=== PATIENT | female | born 1985 | race African-American/Black ===

== ENCOUNTER 2018-08-26 20:53 | Emergency (ER) | payer SELFPAY ==
[2018-08-26] MEDS ORDERED: NA CHLORIDE 0.9% 1,000 ML ONE (22:03)
[2018-08-26 22:52] LABS: Protime INR 1.08
[2018-08-26 22:54] LABS: Absolute Lymphocytes (CBC) 1.8 K/uL (0.7-4.9); Absolute Monocytes 0.7 K/uL (0.1-1.3); Absolute Neutrophil 4.1 K/uL (1.8-8.0); Eosinophils % 3.3 % (0-4.4); Lymphocytes % 25.7 % (15.3-44.8); Monocytes % 10.5 % (3.3-12.3); RBC Red Blood Cell Count 5.47 M/uL (3.86-4.86)
[2018-08-26 22:54] LABS: Urine Blood 3+ (NEG); Urine Glucose NEGATIVE (NEG); Urine Protein NEGATIVE (NEG); Urine Specific Gravity 1.005 (1.005-1.030); Urine pH 5.5 (5.0-7.0)
[2018-08-26 23:12] LABS: ALT/SGPT 34 U/L (12-78); AST/SGOT 31 U/L (15-37); Albumin 3.3 g/dL (3.4-5.0); Alkaline Phosphatase 103 U/L (45-117); BUN Blood Urea Nitrogen 6 mg/dL (7-18); Bicarbonate 24 mmol/L (21-32); Bilirubin Direct 0.2 mg/dL (0-0.2); Bilirubin Total 0.4 mg/dL (0.2-1.0); Glucose Level 93 mg/dL (74-106); Magnesium 2.1 mg/dL (1.8-2.4); Potassium 3.9 mmol/L (3.5-5.1); Sodium Level 140 mmol/L (136-145); Troponin (Emerg Dept Use Only) < 0.02 ng/mL (0.0-0.045)
[2018-08-26 23:36] LABS: Blood Morphology Comment NOTED (NOT SEEN); Hypochromasia 1+; Platelet Estimate ADEQ; Target Cells 1+; Urine White Blood Cell Casts OK
--- NOTE | 2018-08-26 23:41 | EDPHYS ---
Physician Documentation [facility] Name: Barbra Villa Age: 33 yrs Sex: Female : 1985 Arrival Date: 08/26/2018 Time: 20:54 Bed 19 Private MD: ED Physician Daniel Smith HPI: 08/26 21:31 This 33 yrs old Black Female presents to ER via Ambulatory with complaints of tingling cp head and feet, body heaviness, General Weakness. 21:31 The patient's problem is reported as paresthesias, in right lower extremity, in left cp lower extremity, head, headache, general weakness. Onset: The symptoms/episode began/occurred last night. Duration: The episode is continuous. Context: occurred while the patient was driving. Associated signs and symptoms: Pertinent positives: dizziness, lightheadedness, palpitations, shortness of breath, tingling, Pertinent negatives: abdominal pain, chest pain, confusion, diarrhea. Severity of symptoms: in the emergency department the symptoms are unchanged despite home interventions. 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 - Social history:: Smoking status: Patient uses tobacco products, smokes one-half pack cigarettes per day. - Ebola Screening: : No symptoms or risks identified at this time. ROS: 21:35 Constitutional: Negative for body aches, chills, fever, poor PO intake. cp 21:35 Eyes: Negative for injury, pain, redness, and discharge. cp 21:35 ENT: Negative for drainage from ear(s), ear pain, sore throat, difficulty swallowing, difficulty handling secretions. 21:35 Cardiovascular: Positive for palpitations, Negative for chest pain, edema, palpitations. 21:35 Respiratory: Negative for cough, shortness of breath, wheezing. 21:35 Abdomen/GI: Negative for abdominal pain, nausea, vomiting, and diarrhea. 21:35 Skin: Negative for rash. 21:35 Neuro: Positive for dizziness, headache, tingling, Negative for altered mental status, weakness. 21:35 All other systems are negative. Exam: 21:40 Constitutional: The patient appears in no acute distress, alert, awake, cp non-diaphoretic, non-toxic, well developed, well nourished. 21:40 Head/Face: Normocephalic, atraumatic. Eyes: Pupils equal round and reactive to light, cp extra-ocular motions intact. Lids and lashes normal. Conjunctiva and sclera are non-icteric and not injected. Cornea within normal limits. Periorbital areas with no swelling, redness, or edema. ENT: Nares patent. No nasal discharge, no septal abnormalities noted. Tympanic membranes are normal and external auditory canals are clear. Oropharynx with no redness, swelling, or masses, exudates, or evidence of obstruction, uvula midline. Mucous membranes moist. Neck: Trachea midline, no thyromegaly or masses palpated, and no cervical lymphadenopathy. Supple, full range of motion without nuchal rigidity, or vertebral point tenderness. No Meningismus. Chest/axilla: Normal chest wall appearance and motion. Nontender with no deformity. No lesions are appreciated. Cardiovascular: Regular rate and rhythm with a normal S1 and S2. No gallops, murmurs, or rubs. Normal PMI, no JVD. No pulse deficits. Respiratory: Lungs have equal breath sounds bilaterally, clear to auscultation and percussion. No rales, rhonchi or wheezes noted. No increased work of breathing, no retractions or nasal flaring. Abdomen/GI: Soft, non-tender, with normal bowel sounds. No distension or tympany. No guarding or rebound. No evidence of tenderness throughout. 21:40 Skin: no rash present. 21:40 Neuro: Orientation: to person, place \T\ time. Mentation: is normal, Cerebellar function: Romberg testing is negative, normal finger to nose testing, heel to krishna testing is normal, Motor: moves all fours, strength is normal, Sensation: tingling, that is mild, of the left lower leg and right lower leg, Gait: is steady. 21:54 ECG was reviewed by the Attending Physician. cp 22:00 Radiologist reports: no acute findings cp Vital Signs: 21:01 BP 163 / 97; Pulse 94; Resp 18; Temp 98.8(O); Pulse Ox 100% on R/A; Weight 72.57 kg; lp1 Height 5 ft. 2 in. (157.48 cm); Pain 0/10; 22:13 BP 143 / 93; Pulse 77; Resp 16 S; Pulse Ox 100% on R/A; jd3 22:46 BP 139 / 84 Supine; Pulse 78 LA; jb5 22:46 BP 139 / 94 Sitting; Pulse 79 LA; jb5 22:46 BP 150 / 104 Standing; Pulse 87 LA; jb5 23:04 BP 136 / 94; Pulse 77; Resp 14 S; Pulse Ox 100% on R/A; jd3 21:01 Body Mass Index 29.26 (72.57 kg, 157.48 cm) lp1 NIH Stroke Scale Scores: 21:25 NIHSS Score: 0 jd3 MDM: 21:22 Patient medically screened. cp 23:40 Data reviewed: vital signs, nurses notes, lab test result(s), EKG, radiologic studies, cp CT scan, and as a result, I will discharge patient. 23:40 Test interpretation: by ED physician or midlevel provider: ECG. Counseling: I had a cp detailed discussion with the patient and/or guardian regarding: the historical points, exam findings, and any diagnostic results supporting the discharge/admit diagnosis, lab results, radiology results, the need for outpatient follow up, a family practitioner, to return to the emergency department if symptoms worsen or persist or if there are any questions or concerns that arise at home. Response to treatment: the patient's symptoms have markedly improved after treatment, and as a result, I will discharge patient. 08/26 21:31 Order name: Basic Metabolic Panel cp 08/26 21:31 Order name: CBC with Diff cp 08/26 21:31 Order name: LFT's cp 08/26 21:31 Order name: Magnesium cp 08/26 21:31 Order name: PT-INR; Complete Time: 23:21 cp 08/26 21:31 Order name: Troponin (emerg Dept Use Only); Complete Time: 23:21 cp 08/26 21:31 Order name: CT Head Brain wo Cont cp 08/26 21:32 Order name: Basic Metabolic Panel; Complete Time: 23:21 EDMS 08/26 23:21 Interpretation: Normal except: BUN 6; GFR 82. cp 08/26 21:32 Order name: CBC with Automated Diff EDMS 08/26 23:22 Interpretation: Normal except: RBC 5.47; HGB 11.7; MCV 65.7; MCH 21.3; RDW 17.0. cp 08/26 21:32 Order name: Liver (Hepatic) Function; Complete Time: 23:21 EDMS 08/26 23:22 Interpretation: Normal except: ALB 3.3; GLOB 4.7; A/G 0.7. cp 08/26 21:32 Order name: Magnesium; Complete Time: 23:21 EDMS 08/26 23:22 Interpretation: Within normal limits: MG 2.1. cp 08/26 22:42 Order name: Urine Dipstick--Ancillary (enter results); Complete Time: 23:21 ag4 08/26 22:42 Order name: Urine --Ancillary (enter results); Complete Time: 23:21 ag4 08/26 23:37 Order name: CBC Smear Scan EDAK 08/26 21:24 Order name: Urine Dipstick-Ancillary (obtain specimen); Complete Time: 22:28 cp 08/26 21:24 Order name: Urine Test (obtain specimen); Complete Time: 22:28 cp 08/26 21:31 Order name: Orthostatics; Complete Time: 22:50 cp 08/26 21:31 Order name: EKG; Complete Time: 21:32 cp 08/26 21:31 Order name: Cardiac monitoring; Complete Time: 21:54 cp 08/26 21:31 Order name: EKG - Nurse/Tech; Complete Time: 21:54 cp 08/26 21:31 Order name: IV Saline Lock; Complete Time: 21:58 cp 08/26 21:31 Order name: Labs collected and sent; Complete Time: 21:58 cp 08/26 21:31 Order name: O2 Per Protocol; Complete Time: 21:36 cp 08/26 21:31 Order name: O2 Sat Monitoring; Complete Time: 21:36 cp EC:54 Rate is 85 beats/min. Rhythm is regular. CT interval is normal. QRS interval is normal. cp QT interval is normal. Reviewed by me. Administered Medications: 21:58 Drug: NS 0.9% 1000 ml Route: IV; Rate: 1 bolus; Site: right antecubital; jd3 23:49 Follow up: Response: No adverse reaction; IV Status: Completed infusion; IV Intake: jd3 1000ml Disposition: 08/27 02:44 Co-signature as Attending Physician, Daniel Smith MD. mj Disposition: 08/26/18 23:41 Discharged to Home. Impression: Paresthesia of skin - lower legs, Palpitations, Dizziness, Headache. - Condition is Stable. - Discharge Instructions: Dizziness, General Headache Without Cause, Palpitations, Paresthesia. - Medication Reconciliation Form, Thank You Letter, Antibiotic Education, Prescription Opioid Use, Work release form form. - Follow up: Private Physician; When: 2 - 3 days; Reason: Recheck today's complaints. - Problem is new. - Symptoms have improved. NIH Stroke Scale - NIH Stroke Score Date: 08/26/2018 Time: 21:25 Total Score = 0 1a. Level of Consciousness (LOC) - 0(Alert) 1b. Level of Consciousness (LOC) (Year \T\ Age) - 0(Both) 1c. LOC Commands (Open \T\ Closes Eyes/Wildlife Protector) - 0(Both) 2. Best Gaze (Lateral Gaze Paresis) - 0(Normal) 3. Visual Field Loss - 0(No visual loss) 4. Facial Palsy - 0(Normal) 5a. Left Arm: Motor (10-second hold) - 0(No drift) 5b. Right Arm: Motor (10-second hold) - 0(No drift) 6a. Left Leg: Motor (5-second hold - always test supine) - 0(No drift) 6b. Right Leg: Motor (5-second hold - always test supine) - 0(No drift) 7. Limb Ataxia (finger/nose \T\ heel/krishna - test with eyes open) - 0(Absent) 8. Sensory Loss (pinprick arms/legs/face) - 0(Normal) 9. Best Language: Aphasia (description/naming/reading) - 0(No aphasia) 10. Dysarthria (speech clarity - read or repeat words) - 0(Normal) 11. Extinction and Inattention (visual/tactile/auditory/spatial/personal) - 0(No abnormality) Initials: jd3 Signatures: Dispatcher [employer] EDMS Daniel Smith MD MD pkMariza Duran RN RN lp1 Gerry Traylor PA PA cp Davies, Jonathon, RN RN jd3 Corrections: (The following items were deleted from the chart) 08/26 23:41 23:41 08/26/2018 23:41 Discharged to Home. Impression: Paresthesia of skin - cp lower legs; Weakness - general. Condition is Stable. Forms are Medication Reconciliation Form, Thank You Letter, Antibiotic Education, Prescription Opioid Use. Follow up: Private Physician; When: 2 - 3 days; Reason: Recheck today's complaints. Problem is new. Symptoms have improved. cp 23:42 23:41 08/26/2018 23:41 Discharged to Home. Impression: Paresthesia of skin - cp lower legs. Condition is Stable. Forms are Medication Reconciliation Form, Thank You Letter, Antibiotic Education, Prescription Opioid Use. Follow up: Private Physician; When: 2 - 3 days; Reason: Recheck today's complaints. Problem is new. Symptoms have improved. cp 23:50 23:42 08/26/2018 23:41 Discharged to Home. Impression: Paresthesia of skin - jd3 lower legs; Palpitations; Dizziness; Headache. Condition is Stable. Discharge Instructions: Palpitations, Paresthesia. Forms are Medication Reconciliation Form, Thank You Letter, Antibiotic Education, Prescription Opioid Use. Follow up: Private Physician; When: 2 - 3 days; Reason: Recheck today's complaints. Problem is new. Symptoms have improved. cp
--- NOTE | 2018-08-26 23:41 | ER ---
Nurse's Notes [facility] Name: Barbra Villa Age: 33 yrs Sex: Female : 1985 Arrival Date: 08/26/2018 Time: 20:54 Bed 19 Private MD: Diagnosis: Paresthesia of skin-lower legs;Palpitations;Dizziness;Headache Presentation: 08/26 20:58 Presenting complaint: Patient states: "I think I'm having a mini-stroke. Last night my lp1 HR jumped from 98 to 135 on my watch in less than 15 min"; States tingling to hands and feet since 0100 this morning, dizziness, feels short of breath; States having to leave work today due to tingling in hands and feet. Transition of care: patient was not received from another setting of care. Onset of symptoms was August 26, 2018 at 01:00. Risk Assessment: Do you want to hurt yourself or someone else? Patient reports no desire to harm self or others. Care prior to arrival: None. 20:58 Method Of Arrival: Ambulatory lp1 20:58 Acuity: STANLEY 3 lp1 21:04 Initial Sepsis Screen: Does the patient meet any 2 criteria? No. Patient's initial lp1 sepsis screen is negative. Does the patient have a suspected source of infection? No. Patient's initial sepsis screen is negative. Triage Assessment: 21:03 General: Appears in no apparent distress. Behavior is calm, cooperative. General: lp1 Patient drinking soda during triage. Pain: Denies pain. Neuro: Level of Consciousness is awake, alert, obeys commands, Oriented to person, place, time, situation, Moves all extremities. Full function Gait is steady, Speech is normal, Reports tingling in hands and feet. 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 - Social history:: Smoking status: Patient uses tobacco products, smokes one-half pack cigarettes per day. - Ebola Screening: : No symptoms or risks identified at this time. Screenin:04 Abuse screen: Denies threats or abuse. Denies injuries from another. Nutritional lp1 screening: No deficits noted. Tuberculosis screening: No symptoms or risk factors identified. Fall Risk None identified. 21:25 VAN Screening: Arm Drift: Patient shows no arm weakness. Patient is VAN negative. jd3 Assessment: 21:23 General: Appears in no apparent distress. uncomfortable, Behavior is calm, cooperative, jd3 appropriate for age. Pain: Denies pain. Neuro: Level of Consciousness is awake, alert, obeys commands, Oriented to person, place, time, situation, Appropriate for age Child Care Associate Teacher are equal bilaterally Moves all extremities. Full function Gait is steady, Speech is normal, Facial symmetry appears normal, Pupils are PERRLA, Intact Tingling in head, right hand, left hand, right foot and left foot. Cardiovascular: Heart tones S1 S2 present Capillary refill < 3 seconds Patient's skin is warm and dry. Respiratory: Airway is patent Respiratory effort is even, unlabored, Respiratory pattern is regular, symmetrical, Breath sounds are clear bilaterally. GI: Abdomen is non-distended, Patient currently denies diarrhea, nausea, vomiting. : No signs and/or symptoms were reported regarding the genitourinary system. EENT: No signs and/or symptoms were reported regarding the EENT system. Derm: Skin is intact, Skin is dry, Skin is normal, Skin temperature is warm. Musculoskeletal: Circulation, motion, and sensation intact. Range of motion: intact in all extremities. 21:36 Reassessment: pt to CT with fingerprint technician. jd3 22:12 Reassessment: Patient appears in no apparent distress at this time. Patient and/or jd3 family updated on plan of care and expected duration. Pain level reassessed. Patient is alert, oriented x 3, equal unlabored respirations, skin warm/dry/pink. 23:05 Reassessment: Patient appears in no apparent distress at this time. Patient and/or jd3 family updated on plan of care and expected duration. Pain level reassessed. Patient is alert, oriented x 3, equal unlabored respirations, skin warm/dry/pink. awaiting results. 23:49 Reassessment: Patient appears in no apparent distress at this time. Patient and/or jd3 family updated on plan of care and expected duration. Pain level reassessed. Patient is alert, oriented x 3, equal unlabored respirations, skin warm/dry/pink. Vital Signs: 21:01 BP 163 / 97; Pulse 94; Resp 18; Temp 98.8(O); Pulse Ox 100% on R/A; Weight 72.57 kg; lp1 Height 5 ft. 2 in. (157.48 cm); Pain 0/10; 22:13 BP 143 / 93; Pulse 77; Resp 16 S; Pulse Ox 100% on R/A; jd3 22:46 BP 139 / 84 Supine; Pulse 78 LA; jb5 22:46 BP 139 / 94 Sitting; Pulse 79 LA; jb5 22:46 BP 150 / 104 Standing; Pulse 87 LA; jb5 23:04 BP 136 / 94; Pulse 77; Resp 14 S; Pulse Ox 100% on R/A; jd3 21:01 Body Mass Index 29.26 (72.57 kg, 157.48 cm) lp1 NIH Stroke Scale Scores: 21:25 NIHSS Score: 0 jd3 ED Course: 20:54 Patient arrived in ED. am2 21:01 Triage completed. lp1 21:01 Arm band placed on left wrist. lp1 21:17 Shabbir Huerta RN is Primary Nurse. jd3 21:21 Gerry Traylor PA is PHCP. cp 21:21 Daniel Smith MD is Attending Physician. cp 21:25 Patient has correct armband on for positive identification. Placed in gown. Bed in low jd3 position. Call light in reach. Side rails up X 1. 21:58 CT Head Brain wo Cont In Process Unspecified. EDMS 22:00 Inserted saline lock: 20 gauge in right antecubital area, using aseptic technique. jd3 Blood collected. placed by [employer] technical agronomist. 22:29 Inserted saline lock: 22 gauge in left antecubital area, using aseptic technique. Blood jd3 collected. placed by [employer] manager proposal. 23:49 No provider procedures requiring assistance completed. IV discontinued, intact, jd3 bleeding controlled, No redness/swelling at site. Pressure dressing applied. Administered Medications: 21:58 Drug: NS 0.9% 1000 ml Route: IV; Rate: 1 bolus; Site: right antecubital; jd3 23:49 Follow up: Response: No adverse reaction; IV Status: Completed infusion; IV Intake: jd3 1000ml Intake: 23:49 IV: 1000ml; Total: 1000ml. jd3 Outcome: 23:41 Discharge ordered by . cp 23:49 Discharged to home ambulatory, with family. jd3 23:49 Condition: stable 23:49 Discharge instructions given to patient, family, Instructed on discharge instructions, follow up and referral plans. Demonstrated understanding of instructions, follow-up care. 23:50 Patient left the ED. jd3 NIH Stroke Scale - NIH Stroke Score Date: 08/26/2018 Time: 21:25 Total Score = 0 1a. Level of Consciousness (LOC) - 0(Alert) 1b. Level of Consciousness (LOC) (Year \\T\\ Age) - 0(Both) 1c. LOC Commands (Open \\T\\ Closes Eyes/Superintendent Storage Area) - 0(Both) 2. Best Gaze (Lateral Gaze Paresis) - 0(Normal) 3. Visual Field Loss - 0(No visual loss) 4. Facial Palsy - 0(Normal) 5a. Left Arm: Motor (10-second hold) - 0(No drift) 5b. Right Arm: Motor (10-second hold) - 0(No drift) 6a. Left Leg: Motor (5-second hold - always test supine) - 0(No drift) 6b. Right Leg: Motor (5-second hold - always test supine) - 0(No drift) 7. Limb Ataxia (finger/nose \\T\\ heel/krishna - test with eyes open) - 0(Absent) 8. Sensory Loss (pinprick arms/legs/face) - 0(Normal) 9. Best Language: Aphasia (description/naming/reading) - 0(No aphasia) 10. Dysarthria (speech clarity - read or repeat words) - 0(Normal) 11. Extinction and Inattention (visual/tactile/auditory/spatial/personal) - 0(No abnormality) Initials: jd3 Signatures: Dispatcher [employer] EDMS Mariza Guerra RN RN lp1 Gerry Traylor PA PA cp Broussard, Jennifer jbSimran Nye am2 Shabbir Huerta RN RN jd3 Corrections: (The following items were deleted from the chart) 22:01 22:00 Inserted saline lock: 20 gauge in right antecubital area, using aseptic jd3 technique. Blood collected. jd3
--- NOTE | 2018-08-27 08:11 | EKG ---
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
--- NOTE | 2018-08-30 11:49 | RAD REPORT ---
EXAM DESCRIPTION: CT Head Without Intravenous Contrast CLINICAL HISTORY: The patient is 33 years old and is Female; tingling;Headache TECHNIQUE: Axial computed tomography images of the head/brain without intravenous contrast. Sagitt al and coronal reformatted images were created and reviewed. This CT exam was performed using one o r more of the following dose reduction techniques: automated exposure control, adjustment of the mA and/or kV according to patient size, and/or use of iterative reconstruction technique. COMPARISON: No relevant prior studies available. FINDINGS: BRAIN: Unremarkable. The fernandez-white matter differentiation is preserved . No hemorrhag e. No significant white matter disease. No edema. No extra-axial fluid collections. VENTRICLES: Unremarkable. No ventriculomegaly. BONES/JOINTS: No acute fracture. SOFT TISSUES: Unremarkable. SINUSES: Unremarkable as visualized. No acute sinusitis. MASTOID AIR CELLS: Unremarkable as visualized. No mastoid effusion. IMPRESSION: No acute intracranial findings. Electronically signed by: Chanel Olson MD 08/26/2018 10:05 PM CDT Due to temporary technical issues with the PACS/Fluency reporting system, reports are being signed by the in house radiologist as a courtesy to ensure prompt reporting. The interpreting radiologist is f ully responsible for the content of the report.
== END 2018-08-26 23:50 | disposition home or self-care (01) ==
LOC: ER 20:53
DX: R00.2 Palpitations (principal); R51 Headache; R42 Dizziness and giddiness; F17.210 Nicotine dependence, cigarettes, uncomplicated
CPT/HCPCS: 36415; 70450; 80048; 80076; 81003; 81025; 83735; 84484; 85025; 85610; 93005; 96360; 96361; 99284; J7030

== ENCOUNTER 2019-01-01 08:27 | Emergency (ER) | payer SELFPAY ==
--- NOTE | 2019-01-01 08:49 | ER ---
Nurse's Notes [facility] Name: Barbra Dubon Age: 33 yrs Sex: Female : 1985 Arrival Date: 01/01/2019 Time: 08:33 Bed 14 Private MD: Diagnosis: Allergy status to analgesic agent status Presentation: 01/01 08:38 Presenting complaint: Patient states: L upper lip swelling that began last night. ss Patient reports she took a dose of Benadryl last night which seem to help a little, but it's still swollen this morning. Denies difficulty breathing/ pain. Transition of care: patient was not received from another setting of care. Onset of symptoms was December 31, 2018. Risk Assessment: Do you want to hurt yourself or someone else? Patient reports no desire to harm self or others. Initial Sepsis Screen: Does the patient meet any 2 criteria? No. Patient's initial sepsis screen is negative. Does the patient have a suspected source of infection? No. Patient's initial sepsis screen is negative. Care prior to arrival: None. 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 - Social history:: Smoking status: Patient uses tobacco products, smokes one-half pack cigarettes per day. - Ebola Screening: : Patient denies exposure to infectious person Patient denies travel to an Ebola-affected area in the 21 days before illness onset. Screenin:43 Abuse screen: Denies threats or abuse. Denies injuries from another. Nutritional ss screening: No deficits noted. Tuberculosis screening: No symptoms or risk factors identified. Never had TB. Fall Risk None identified. Assessment: 08:43 General: Appears in no apparent distress. comfortable, Behavior is calm, cooperative, ss Denies fever, feeling ill, fatigue, chills. Pain: Denies pain. Neuro: Level of Consciousness is awake, alert, obeys commands, Oriented to person, place, time, situation, Admitting Counselor are equal bilaterally Moves all extremities. Gait is steady, Speech is normal, Pupils are PERRLA, Denies tingling to L upper lip that began last night when patient noticed swelling.. Cardiovascular: Capillary refill < 3 seconds is brisk in bilateral fingers Pulses are palpable in right radial artery and left radial artery. Respiratory: Airway is patent Respiratory effort is even, unlabored, Respiratory pattern is regular, symmetrical, Breath sounds are clear bilaterally. Denies cough, shortness of breath. GI: No signs and/or symptoms were reported involving the gastrointestinal system. : No signs and/or symptoms were reported regarding the genitourinary system. EENT: mild-moderate swelling noted to L upper lip that began last night with tingling. Throat is clear. Derm: Skin is intact, is healthy with good turgor, Skin is pink, warm \T\ dry. normal. Musculoskeletal: Circulation, motion, and sensation intact. Range of motion: intact in all extremities. Vital Signs: 08:37 BP 135 / 94; Pulse 94; Resp 16; Temp 97.5(TE); Pulse Ox 100% on R/A; Weight 68.04 kg; ss Height 5 ft. 2 in. (157.48 cm); Pain 0/10; 08:37 Body Mass Index 27.44 (68.04 kg, 157.48 cm) ED Course: 08:33 Patient arrived in ED. am2 08:34 Agatha Escobar, JOE is Primary Nurse. jl7 08:35 Gerry Cabezas MD is Attending Physician. [facility] 08:37 Arm band placed on left wrist. 08:39 Triage completed. 08:43 Patient has correct armband on for positive identification. Bed in low position. Call light in reach. 09:03 No provider procedures requiring assistance completed. Patient did not have IV access jl7 during this emergency room visit. Administered Medications: 08:56 Drug: predniSONE 60 mg Route: PO; jl7 09:03 Follow up: Response: Medication administered at discharge. jl7 08:56 Drug: Pepcid 40 mg Route: PO; jl7 09:03 Follow up: Response: Medication administered at discharge. jl7 08:56 Drug: Benadryl 75 mg Route: PO; jl7 09:03 Follow up: Response: Medication administered at discharge. jl7 Outcome: 08:49 Discharge ordered by . maryjane 09:03 Discharged to home ambulatory, with family. jl7 09:03 Condition: stable 09:03 Discharge instructions given to patient, family, Instructed on discharge instructions, follow up and referral plans. medication usage, Demonstrated understanding of instructions, follow-up care, medications, Prescriptions given X 4. 09:04 Patient left the ED. jl7 Signatures: Gerry Cabezas MD MD cha Smirch, Shelby, RN RN Agatha Ewing RN RN jl7 Simran Molina
--- NOTE | 2019-01-01 08:50 | EDPHYS ---
Physician Documentation [facility] Name: Barbra Dubon Age: 33 yrs Sex: Female : 1985 Arrival Date: 01/01/2019 Time: 08:33 Bed 14 Private MD: JYOTHI Physician Gerry Cabezas HPI: 01/01 08:46 This 33 yrs old Black Female presents to ER via Ambulatory with complaints of lip maryjane swelling. 08:46 The patient presents with localized swelling. Onset: The symptoms/episode maryjane began/occurred last night. Associated signs and symptoms: The patient has no apparent associated signs or symptoms. Possible causes: NSAIDs, midol plus. At home the patient or guardian has treated the symptoms with nothing. Severity of symptoms: At their worst the symptoms were mild in the emergency department the symptoms are unchanged. The patient has experienced similar episodes in the past, a few times. 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 - Social history:: Smoking status: Patient uses tobacco products, smokes one-half pack cigarettes per day. - Ebola Screening: : Patient denies exposure to infectious person Patient denies travel to an Ebola-affected area in the 21 days before illness onset. ROS: 08:47 Constitutional: Negative for fever, chills, and weight loss, Eyes: Negative for injury, maryjane pain, redness, and discharge, Neck: Negative for injury, pain, and swelling, Cardiovascular: Negative for chest pain, palpitations, and edema, Respiratory: Negative for shortness of breath, cough, wheezing, and pleuritic chest pain, Abdomen/GI: Negative for abdominal pain, nausea, vomiting, diarrhea, and constipation, Back: Negative for injury and pain, : Negative for injury, bleeding, discharge, and swelling, MS/Extremity: Negative for injury and deformity, Skin: Negative for injury, rash, and discoloration, Neuro: Negative for headache, weakness, numbness, tingling, and seizure, Psych: Negative for depression, anxiety, suicide ideation, homicidal ideation, and hallucinations, Allergy/Immunology: Negative for hives, rash, and allergies, Endocrine: Negative for neck swelling, polydipsia, polyuria, polyphagia, and marked weight changes, Hematologic/Lymphatic: Negative for swollen nodes, abnormal bleeding, and unusual bruising. 08:47 ENT: Positive for injury or acute deformity, of the mouth. Exam: 08:47 Constitutional: This is a well developed, well nourished patient who is awake, alert, maryjane and in no acute distress. Eyes: Pupils equal round and reactive to light, extra-ocular motions intact. Lids and lashes normal. Conjunctiva and sclera are non-icteric and not injected. Cornea within normal limits. Periorbital areas with no swelling, redness, or edema. ENT: Nares patent. No nasal discharge, no septal abnormalities noted. Tympanic membranes are normal and external auditory canals are clear. Oropharynx with no redness, swelling, or masses, exudates, or evidence of obstruction, uvula midline. Mucous membranes moist. Neck: Trachea midline, no thyromegaly or masses palpated, and no cervical lymphadenopathy. Supple, full range of motion without nuchal rigidity, or vertebral point tenderness. No Meningismus. Chest/axilla: Normal chest wall appearance and motion. Nontender with no deformity. No lesions are appreciated. Cardiovascular: Regular rate and rhythm with a normal S1 and S2. No gallops, murmurs, or rubs. Normal PMI, no JVD. No pulse deficits. Respiratory: Lungs have equal breath sounds bilaterally, clear to auscultation and percussion. No rales, rhonchi or wheezes noted. No increased work of breathing, no retractions or nasal flaring. Abdomen/GI: Soft, non-tender, with normal bowel sounds. No distension or tympany. No guarding or rebound. No evidence of tenderness throughout. Back: No spinal tenderness. No costovertebral tenderness. Full range of motion. Skin: Warm, dry with normal turgor. Normal color with no rashes, no lesions, and no evidence of cellulitis. MS/ Extremity: Pulses equal, no cyanosis. Neurovascular intact. Full, normal range of motion. Neuro: Awake and alert, GCS 15, oriented to person, place, time, and situation. Cranial nerves II-XII grossly intact. Motor strength 5/5 in all extremities. Sensory grossly intact. Cerebellar exam normal. Normal gait. Psych: Awake, alert, with orientation to person, place and time. Behavior, mood, and affect are within normal limits. 08:47 Head/face: Noted is swelling, that is mild, that is moderate, of the mouth. Vital Signs: 08:37 BP 135 / 94; Pulse 94; Resp 16; Temp 97.5(TE); Pulse Ox 100% on R/A; Weight 68.04 kg; ss Height 5 ft. 2 in. (157.48 cm); Pain 0/10; 08:37 Body Mass Index 27.44 (68.04 kg, 157.48 cm) ss MDM: 08:35 Patient medically screened. [facility] 08:48 Data reviewed: vital signs, nurses notes. [facility] Administered Medications: 08:56 Drug: predniSONE 60 mg Route: PO; [facility] 09:03 Follow up: Response: Medication administered at discharge. [facility] 08:56 Drug: Pepcid 40 mg Route: PO; [facility] 09:03 Follow up: Response: Medication administered at discharge. [facility] 08:56 Drug: Benadryl 75 mg Route: PO; [facility] 09:03 Follow up: Response: Medication administered at discharge. [facility] Disposition: 01/01/19 08:49 Discharged to Home. Impression: Allergy status to analgesic agent status. - Condition is Stable. - Discharge Instructions: Allergies, Adult, Angioedema, Allergies, [id number]. - Prescriptions for Benadryl 25 mg Oral Capsule - take 2 capsule by ORAL route every 6 hours As needed; 36 tablet. Pepcid 20 mg Oral Tablet - take 1 tablet by ORAL route every 12 hours for 10 days; 20 tablet. Prednisone 20 mg Oral Tablet - take 2 tablet by ORAL route once daily for 5 days; 10 tablet. EpiPen 0.3 mg Injection auto- injector - inject 1 pen by INTRAMUSCULAR route one time Inject into the outer portion of the thigh, through clothing if necessary. Indicated in the emergency treatment of allergic reactions; 1 Cartridge. - Work release form, Medication Reconciliation Form, Thank You Letter, Antibiotic Education, Prescription Opioid Use form. - Follow up: Private Physician; When: 2 - 3 days; Reason: Recheck today's complaints, Continuance of care, Re-evaluation by your physician. - Problem is new. - Symptoms have improved. Signatures: Gerry Cabezas MD MD cha Smirch, Shelby, RN RN ss Agatha Escobar RN RN jl7 Corrections: (The following items were deleted from the chart) 09:04 08:49 01/01/2019 08:49 Discharged to Home. Impression: Allergy status to analgesic jl7 agent status. Condition is Stable. Forms are Medication Reconciliation Form, Thank You Letter, Antibiotic Education, Prescription Opioid Use. Follow up: Private Physician; When: 2 - 3 days; Reason: Recheck today's complaints, Continuance of care, Re-evaluation by your physician. Problem is new. Symptoms have improved. maryjane
[2019-01-01] MEDS ORDERED: DIPHENHYDRAMINE 25 MG TAB/CAP ONE (08:53)
[2019-01-01] MEDS ORDERED: FAMOTIDINE 20 MG TAB ONE (08:54)
[2019-01-01] MEDS ORDERED: predniSONE 20 MG TAB ONE (08:54)
[2019-01-01 09:19] VITALS: BP 135/94; TEMP 97.5; O2SAT 100
== END 2019-01-01 09:04 | disposition home or self-care (01) ==
LOC: ER 08:27
DX: R22.9 Localized swelling, mass and lump, unspecified (principal); F17.210 Nicotine dependence, cigarettes, uncomplicated; Z88.6 Allergy status to analgesic agent
CPT/HCPCS: 99283; J7512

== ENCOUNTER 2019-04-02 11:55 | Emergency (ER) | payer SELFPAY ==
--- OUTSIDE RECORDS SUMMARY | 2019-04-02 11:57 | XMS REPORT ---
:1985 [facility] [address] [place] [address] Care Team Providers Name Role Phone UNKNOWN, REFERRING Primary Care Provider Unavailable Problems This patient has no known problems. Allergies, Adverse Reactions, Alerts This patient has no known allergies or adverse reactions. Medications This patient has no known medications. Encounters Start End Encounter Admission Attending Care Care Encounter Date/Time Date/Time Type Type Clinicians Facility Department ID 2017-07-28 2017-07-28 Emergency E [facility] [id number] 18:31:00 18:31:00
[2019-04-02] MEDS ORDERED: NA CHLORIDE 0.9% 1,000 ML ONE (13:00)
[2019-04-02] MEDS ORDERED: MORPHINE 4 MG/ML SYR ONE (13:05)
[2019-04-02] MEDS ORDERED: ONDANSETRON 4 MG/2 ML VIAL ONE (13:05)
[2019-04-02 13:14] LABS: Hematocrit 34.1 % (36.0-45.0)
[2019-04-02 13:16] LABS: ALT/SGPT 23 U/L (12-78); AST/SGOT 22 U/L (15-37); Albumin 3.2 g/dL (3.4-5.0); Alkaline Phosphatase 88 U/L (45-117); BUN Blood Urea Nitrogen 5 mg/dL (7-18); Bicarbonate 27 mmol/L (21-32); Bilirubin Direct < 0.1 mg/dL (0-0.2); Bilirubin Total 0.3 mg/dL (0.2-1.0); Glucose Level 102 mg/dL (74-106); Lipase 158 U/L (73-393); Potassium 3.7 mmol/L (3.5-5.1); Protein, Total 7.7 g/dL (6.4-8.2); Sodium Level 139 mmol/L (136-145)
[2019-04-02 13:34] LABS: Anisocytosis 2+; Blood Morphology Comment NOTED (NOT SEEN); Hypochromasia 1+; Platelet Estimate ADEQ; Poikilocytosis 1+; Target Cells 2+
[2019-04-02 13:57] LABS: Urine Blood NEGATIVE (NEG); Urine Glucose NEGATIVE (NEG); Urine Protein NEGATIVE (NEG); Urine pH 6.5 (5.0-7.0)
--- NOTE | 2019-04-02 15:30 | RAD REPORT ---
EXAM DESCRIPTION: CT - Abdomen Pelvis W Contrast - 04/02/2019 2:58 pm CLINICAL HISTORY: Abdominal pain. COMPARISON: None. TECHNIQUE: Computed axial tomography of the abdomen and pelvis was obtained. 100 cc Isovue-300 is ad ministered intravenously. Oral contrast was given. All CT scans are performed using dose optimization technique as appropriate and may include automated exposure control or mA/KV adjustment according to patient size. FINDINGS: The liver, spleen, pancreas, adrenals and kidneys appear unremarkable. There is no evidence of diverticulitis A 26 millimeter irregularly-shaped right ovarian cyst with stranding in the adjacent fat. The proxima l and mid appendix are normal. The distal appendix is borderline enlarged and abuts the right ovarian cyst. IMPRESSION: 26 millimeter irregularly shaped right ovarian cyst likely has recently ruptured. There is mild stranding within the adjacent fat. The distal appendix abuts the right ovarian cyst and is b orderline enlarged. I suspect that the patient does not have appendicitis. However, if the patient's symptoms do not resolve then a followup CT would be recommended for re-evaluation
--- NOTE | 2019-04-02 15:36 | ER ---
Nurse's Notes [facility] Name: Barbra Dubon Age: 33 yrs Sex: Female : 1985 Arrival Date: 04/02/2019 Time: 11:57 Bed 26 Private MD: Diagnosis: Pelvic and perineal pain;Other and unspecified ovarian cysts-ruptured Presentation: 04/02 12:16 Presenting complaint: Patient states: Right lower quadrant pain 10/10, pain does not rb1 radiate. denies fever. Transition of care: patient was not received from another setting of care. Onset of symptoms was March 31, 2019. Risk Assessment: Do you want to hurt yourself or someone else? Patient reports no desire to harm self or others. 12:16 Method Of Arrival: Wheelchair rb1 12:16 Acuity: STANLEY 3 rb1 Triage Assessment: 12:16 General: Appears uncomfortable, Behavior is calm, cooperative. Pain: Complains of pain rb1 in right lower quadrant Pain does not radiate. Pain currently is 10 out of 10 on a pain scale. Neuro: Level of Consciousness is awake, alert, obeys commands, Oriented to person, place, time, situation. Respiratory: Airway is patent Respiratory effort is even, unlabored, Respiratory pattern is regular, symmetrical. GI: Abdomen is tender to palpation Guarding noted in right lower quadrant. : Reports right lower quadrant pain increases during urination, pt denies burning with urination. 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 - Social history:: Smoking status: Patient uses tobacco products, smokes one pack cigarettes per day. - Ebola Screening: : Patient negative for fever greater than or equal to 101.5 degrees Fahrenheit, and additional compatible Ebola Virus Disease symptoms. - Family history:: not pertinent. Screenin:31 Abuse screen: Denies threats or abuse. Nutritional screening: No deficits noted. sr5 Tuberculosis screening: No symptoms or risk factors identified. Fall Risk None identified. Assessment: 14:04 Reassessment: No change from previous assessment, resting supine position, reports no sr5 pain unless she moves. Pt completed CT contrast and should be going for scan soon. Family and Pt updated on POC. Equal unlabored resp, skin warm/dry/nc, IV site asympt with IVF infusing as bolus. BP and Pulse Ox in place. Call light within reach. 14:45 Reassessment: Pt to CT via stretcher. sr5 15:25 Reassessment: No change in pt condition. Pt remains AA\\T\\Ox4, equal unlabored resp, RA, sr5 skin warm/dry/nc, IV site asympt/SL, continued complaint of RLQ pain "Sharp". Denies N/V/D. Awaiting CT results. 16:31 Reassessment: Upon discharge patient AA\\T\\Ox4, equal unlabored resp, skin warm/dry/nc, sr5 steady gait to restroom but reports pain continues but lessened. Vital Signs: 12:16 BP 129 / 78; Pulse 92; Resp 17; Temp 98.1(TE); Pulse Ox 100% on R/A; Weight 68.04 kg rb1 (R); Height 5 ft. 2 in. (157.48 cm) (R); Pain 10/10; 13:00 BP 150 / 96 RA (auto/lg); Pulse 80; Resp 20; Pulse Ox 100% on R/A; jp3 14:03 BP 137 / 88; Pulse 58; Resp 12; Pulse Ox 100% ; sr5 15:25 BP 127 / 88; Pulse 61; Resp 12; Temp 98.7; Pulse Ox 100% on R/A; Pain 6/10; sr5 16:31 BP 121 / 78; Pulse 62; Resp 14; Temp 98.1; Pulse Ox 100% ; Pain 4/10; sr5 12:16 Body Mass Index 27.44 (68.04 kg, 157.48 cm) rb1 15:25 RLQ sharp pain worse with movement sr5 ED Course: 11:57 Patient arrived in ED. as 12:16 Arm band placed on right wrist. Patient placed in an exam room, in a wheelchair. rb1 12:17 Gerry Cabezas MD is Attending Physician. maryjane 12:26 Triage completed. rb1 12:40 Missed attempt(s): 22 gauge in right antecubital area. Bleeding controlled, band aid jp3 applied, catheter tip intact. 12:49 Inserted saline lock: 22 gauge in left antecubital area, using aseptic technique. Blood jp3 collected. Patient maintains SpO2 saturation greater than 95% on room air. 12:49 Initial lab(s) drawn, by me, sent to lab. jp3 12:54 Bed in low position. Call light in reach. Side rails up X 1. Side rails up X2. Adult w/ jp3 patient. Warm blanket given. Verbal reassurance given. Pulse ox on. NIBP on. 13:02 Zana Chavez, RN is Primary Nurse. sr5 13:51 Urine --Ancillary (enter results) Sent. jp3 13:51 Urine Dipstick--Ancillary (enter results) Sent. jp3 14:56 CT completed. Patient tolerated procedure well. Patient moved back from CT. bq 14:58 CT Abd/Pelvis - PO and IV Contrast In Process Unspecified. EDMS 15:35 Keely Miranda MD is Referral Physician. maryjane 16:31 No provider procedures requiring assistance completed. IV discontinued. sr5 Administered Medications: 13:02 Drug: NS 0.9% 1000 ml Route: IV; Rate: 1 bolus; Site: left antecubital; sr5 16:34 Follow up: IV Status: Completed infusion; IV Intake: 1000ml sr5 13:09 Drug: Zofran 4 mg Route: IVP; Site: left antecubital; sr5 16:34 Follow up: Response: No change in condition sr5 13:10 Drug: morphine 4 mg Route: IVP; Site: left antecubital; sr5 16:34 Follow up: Response: Pain is unchanged, physician notified sr5 15:53 Drug: TORadol 30 mg Route: IVP; Site: left antecubital; sr5 16:34 Follow up: Response: Pain is decreased sr5 Point of Care Testing: Urine : 13:39 hCG Reading: Negative; Control Reading: Positive; ss Intake: 16:34 IV: 1000ml; Total: 1000ml. sr5 Outcome: 15:35 Discharge ordered by . maryjane 16:31 Discharged to home ambulatory, with family. sr5 16:31 Condition: good 16:31 Discharge instructions given to patient, family, Instructed on discharge instructions, follow up and referral plans. medication usage, Demonstrated understanding of instructions, follow-up care, medications, Prescriptions given X 2. 16:35 Patient left the ED. sr5 Signatures: Dispatcher [employer] EDGerry Trent MD MD cha Quilty, Betty bq Martinez, Amelia as Smirch, Shelby, RN RN ss Shama Yip RN RN rb1 Zana Chavez RN RN sr5 Denny Rubio jp3 Corrections: (The following items were deleted from the chart) 12:56 12:40 Missed attempt(s): 22 gauge in right antecubital area. jp3 jp3 15:29 12:16 Allergies: uknown medication; rb1 sr5
--- NOTE | 2019-04-02 15:36 | EDPHYS ---
Physician Documentation [facility] Name: Barbra Dubon Age: 33 yrs Sex: Female : 1985 Arrival Date: 04/02/2019 Time: 11:57 Bed 26 Private MD: ED Physician Gerry Cabezas HPI: 04/02 13:35 This 33 yrs old Black Female presents to ER via Wheelchair with complaints of Abdominal maryjane Pain. 13:35 The patient presents with abdominal pain in the lower abdomen, right lower quadrant, maryjane abdominal distention in the upper abdomen, in the lower abdomen. Onset: The symptoms/episode began/occurred 2 day(s) ago. The symptoms do not radiate. Associated signs and symptoms: none. The symptoms are described as crampy, steady. Modifying factors: The symptoms are alleviated by nothing, the symptoms are aggravated by movement, pressure. 13:35 Severity of pain: At its worst the pain was moderate. The patient has not experienced maryjane similar symptoms in the past. [employer]: 12:16 LMP 03/11/2019 rb1 Historical: - Allergies: 15:28 Midol Complete; sr5 15:28 pyrilamine maleate; sr5 - Home Meds: 12:16 None [Active]; rb1 - PMHx: 12:16 None; rb1 - PSHx: 12:16 ; Tonsillectomy; rb1 - Immunization history:: Adult Immunizations up to date. - Social history:: Smoking status: Patient uses tobacco products, smokes one pack cigarettes per day. - Ebola Screening: : Patient negative for fever greater than or equal to 101.5 degrees Fahrenheit, and additional compatible Ebola Virus Disease symptoms. - Family history:: not pertinent. ROS: 13:35 Constitutional: Negative for fever, chills, and weight loss, Eyes: Negative for injury, maryjane pain, redness, and discharge, ENT: Negative for injury, pain, and discharge, Neck: Negative for injury, pain, and swelling, Cardiovascular: Negative for chest pain, palpitations, and edema, Respiratory: Negative for shortness of breath, cough, wheezing, and pleuritic chest pain, Back: Negative for injury and pain, : Negative for injury, bleeding, discharge, and swelling, MS/Extremity: Negative for injury and deformity, Skin: Negative for injury, rash, and discoloration, Neuro: Negative for headache, weakness, numbness, tingling, and seizure, Psych: Negative for depression, anxiety, suicide ideation, homicidal ideation, and hallucinations, Allergy/Immunology: Negative for hives, rash, and allergies, Endocrine: Negative for neck swelling, polydipsia, polyuria, polyphagia, and marked weight changes, Hematologic/Lymphatic: Negative for swollen nodes, abnormal bleeding, and unusual bruising. 13:35 Abdomen/GI: Positive for abdominal pain, of the right lower quadrant. Exam: 13:35 Constitutional: This is a well developed, well nourished patient who is awake, alert, maryjane and in no acute distress. Head/Face: Normocephalic, atraumatic. Eyes: Pupils equal round and reactive to light, extra-ocular motions intact. Lids and lashes normal. Conjunctiva and sclera are non-icteric and not injected. Cornea within normal limits. Periorbital areas with no swelling, redness, or edema. ENT: Nares patent. No nasal discharge, no septal abnormalities noted. Tympanic membranes are normal and external auditory canals are clear. Oropharynx with no redness, swelling, or masses, exudates, or evidence of obstruction, uvula midline. Mucous membranes moist. Neck: Trachea midline, no thyromegaly or masses palpated, and no cervical lymphadenopathy. Supple, full range of motion without nuchal rigidity, or vertebral point tenderness. No Meningismus. Chest/axilla: Normal chest wall appearance and motion. Nontender with no deformity. No lesions are appreciated. Cardiovascular: Regular rate and rhythm with a normal S1 and S2. No gallops, murmurs, or rubs. Normal PMI, no JVD. No pulse deficits. Respiratory: Lungs have equal breath sounds bilaterally, clear to auscultation and percussion. No rales, rhonchi or wheezes noted. No increased work of breathing, no retractions or nasal flaring. Back: No spinal tenderness. No costovertebral tenderness. Full range of motion. Skin: Warm, dry with normal turgor. Normal color with no rashes, no lesions, and no evidence of cellulitis. MS/ Extremity: Pulses equal, no cyanosis. Neurovascular intact. Full, normal range of motion. Neuro: Awake and alert, GCS 15, oriented to person, place, time, and situation. Cranial nerves II-XII grossly intact. Motor strength 5/5 in all extremities. Sensory grossly intact. Cerebellar exam normal. Normal gait. Psych: Awake, alert, with orientation to person, place and time. Behavior, mood, and affect are within normal limits. 13:35 Abdomen/GI: Inspection: distension, Bowel sounds: normal, active, Palpation: moderate abdominal tenderness, in the right lower quadrant, Liver: no appreciated palpable abnormalities, Hernia: not appreciated. Vital Signs: 12:16 BP 129 / 78; Pulse 92; Resp 17; Temp 98.1(TE); Pulse Ox 100% on R/A; Weight 68.04 kg rb1 (R); Height 5 ft. 2 in. (157.48 cm) (R); Pain 10/10; 13:00 BP 150 / 96 RA (auto/lg); Pulse 80; Resp 20; Pulse Ox 100% on R/A; jp3 14:03 BP 137 / 88; Pulse 58; Resp 12; Pulse Ox 100% ; sr5 15:25 BP 127 / 88; Pulse 61; Resp 12; Temp 98.7; Pulse Ox 100% on R/A; Pain 6/10; sr5 16:31 BP 121 / 78; Pulse 62; Resp 14; Temp 98.1; Pulse Ox 100% ; Pain 4/10; sr5 12:16 Body Mass Index 27.44 (68.04 kg, 157.48 cm) rb1 15:25 RLQ sharp pain worse with movement sr5 MDM: 12:17 Patient medically screened. [facility] 13:38 Data reviewed: vital signs, nurses notes, lab test result(s), radiologic studies, CT maryjane scan. 04/02 12:21 Order name: Basic Metabolic Panel; Complete Time: 13:34 [facility] 04/02 12:21 Order name: CBC with Diff; Complete Time: 15:33 [facility] 04/02 12:21 Order name: Creatinine for Radiology; Complete Time: 13:34 [facility] 04/02 12:21 Order name: Hepatic Function; Complete Time: 13:34 maryjane 04/02 12:21 Order name: Lipase; Complete Time: 13:34 [facility] 04/02 13:34 Order name: Manual Differential; Complete Time: 15:33 [facility] 04/02 12:21 Order name: IV Saline Lock; Complete Time: 12:54 [facility] 04/02 12:37 Order name: CT Abd/Pelvis - PO and IV Contrast [facility] 04/02 13:49 Order name: Urine Dipstick--Ancillary (enter results) 04/02 13:49 Order name: Urine --Ancillary (enter results) 04/02 12:21 Order name: Labs collected and sent; Complete Time: 12:54 [facility] 04/02 12:21 Order name: Urine Dipstick-Ancillary (obtain specimen); Complete Time: 13:51 [facility] 04/02 12:21 Order name: Urine Test (obtain specimen); Complete Time: 13:51 [facility] Administered Medications: 13:02 Drug: NS 0.9% 1000 ml Route: IV; Rate: 1 bolus; Site: left antecubital; sr5 16:34 Follow up: IV Status: Completed infusion; IV Intake: 1000ml sr5 13:09 Drug: Zofran 4 mg Route: IVP; Site: left antecubital; sr5 16:34 Follow up: Response: No change in condition sr5 13:10 Drug: morphine 4 mg Route: IVP; Site: left antecubital; sr5 16:34 Follow up: Response: Pain is unchanged, physician notified sr5 15:53 Drug: TORadol 30 mg Route: IVP; Site: left antecubital; sr5 16:34 Follow up: Response: Pain is decreased sr5 Point of Care Testing: Urine : 13:39 hCG Reading: Negative; Control Reading: Positive; ss Disposition: 04/02/19 15:35 Discharged to Home. Impression: Pelvic and perineal pain, Other and unspecified ovarian cysts - ruptured. - Condition is Fair. - Discharge Instructions: Abdominal Pain, Adult, Ovarian Cyst, Pelvic Pain, Female, Pelvic Pain, Female, [id number], Ovarian Cyst, [id number]. - Prescriptions for Ibuprofen 600 mg Oral Tablet - take 1 tablet by ORAL route every 6 hours As needed take with food; 21 tablet. Tylenol- Codeine #3 300-30 mg Oral Tablet - take 2 tablets by ORAL route every 6 hours As needed; 26 tablet. - Medication Reconciliation Form, Thank You Letter, Antibiotic Education, Prescription Opioid Use form. - Follow up: Private Physician; When: 2 - 3 days; Reason: Recheck today's complaints, Continuance of care, Re-evaluation by your physician. Follow up: Keely Miranda MD; When: 2 - 3 days; Reason: Recheck today's complaints, Re-evaluation by your physician. - Problem is new. - Symptoms have improved. Signatures: Dispatcher [employer] Gerry Edouard MD MD cha Barber, Rebecca, RN RN rb1 Zana Chavez RN RN sr5 Corrections: (The following items were deleted from the chart) 15:29 12:16 Allergies: uknown medication; rb1 sr5 15:35 15:35 04/02/2019 15:35 Discharged to Home. Impression: Pelvic and perineal pain; Other maryjane and unspecified ovarian cysts - ruptured. Condition is Fair. Forms are Medication Reconciliation Form, Thank You Letter, Antibiotic Education, Prescription Opioid Use. Follow up: Private Physician; When: 2 - 3 days; Reason: Recheck today's complaints, Continuance of care, Re-evaluation by your physician. Problem is new. Symptoms have improved. maryjane 16:35 15:35 04/02/2019 15:35 Discharged to Home. Impression: Pelvic and perineal pain; Other sr5 and unspecified ovarian cysts - ruptured. Condition is Fair. Forms are Medication Reconciliation Form, Thank You Letter, Antibiotic Education, Prescription Opioid Use. Follow up: Private Physician; When: 2 - 3 days; Reason: Recheck today's complaints, Continuance of care, Re-evaluation by your physician. Follow up: Keely Miranda; When: 2 - 3 days; Reason: Recheck today's complaints, Re-evaluation by your physician. Problem is new. Symptoms have improved. maryjane
[2019-04-02] MEDS ORDERED: KETOROLAC 30 MG/ML INJ ONE (15:49)
[2019-04-02 17:57] VITALS: O2SAT 100
[2019-04-02 18:03] VITALS: BP 121/78; TEMP 98.1
== END 2019-04-02 16:35 | disposition home or self-care (01) ==
LOC: ER 11:55
DX: N83.299 Other ovarian cyst, unspecified side (principal); F17.210 Nicotine dependence, cigarettes, uncomplicated; Z88.6 Allergy status to analgesic agent; Z88.8 Allergy status to other drugs, medicaments and biological substances
CPT/HCPCS: 36415; 74177; 80048; 80076; 81003; 81025; 83690; 85025; 96361; 96374; 96375; 99285; J2405; J7030; Q9967